=== PATIENT | female | born 2005 | race Caucasian/White ===

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

== ENCOUNTER 2024-04-19 10:31 | Emergency (ER) | payer OTHER, SELFPAY ==
[2024-04-19 11:05] VITALS: BP 122/82; PULSE 95; RESP 18; TEMP 36.6; O2SAT 98
--- NOTE | 2024-04-19 11:43 | ED.GENADULT ---
HPI - General Adult General Chief complaint: Urogenital-Female Stated complaint: uti symptoms Time Seen by Provider: 04/19/24 11:43 Source: patient Mode of arrival: ambulatory Limitations: no limitations History of Present Illness HPI narrative: 18-year-old female patient presents to the [facility] with complaints of urinary symptoms. Patient is accompanied by her mother. Patient does have history of MR. mother states that patient has been going to the bathroom often but is not able to pee every time. Patient is complaining of burning pain with urination. Denies fevers, body aches or chills. Symptoms have been going on for about 2 days. Denies any low back pain but states some abdominal tenderness at times. Related Data Home Medications Medication Instructions Recorded Confirmed L norgest/E estradiol-E estrad 0.1 0.1 tablet DAILY 09/30/23 04/19/24 mg-20 mcg (84)/10 mcg (7) tabs,3mos fluoxetine 10 mg capsule 10 mg DAILY 09/30/23 04/19/24 ondansetron 4 mg disintegrating 4 mg Q6-12H 09/30/23 04/19/24 tablet fluoxetine 20 mg capsule 20 mg HS 12/23/23 04/19/24 hyoscyamine sulfate 0.125 mg 0.125 mg TID 12/23/23 04/19/24 sublingual tablet Allergies Allergy/AdvReac Type Severity Reaction Status Date / Time No Known Allergies Allergy Verified 04/19/24 11:24 Review of Systems Review of Systems: CONSTITUTIONAL: Denies fever, chills, or sweats. EYES: Denies visual changes, redness, or discharge. ENT: Denies rhinorrhea, congestion, sore throat, or otalgia. CARDIOVASCULAR: Denies chest pain, palpitations, or edema. RESPIRATORY: Denies cough or dyspnea. GASTROINTESTINAL: Denies abdominal pain, nausea, vomiting, or diarrhea. GENITOURINARY: Positive dysuria , denies hematuria. SKIN: Denies rash or itching. MUSCULOSKELETAL: Denies back pain, joint pain, or myalgia. NEUROLOGIC: Denies headache, numbness, or weakness. PSYCHIATRIC: Denies anxiety or depression. [facility] Past Medical History Medical History Allergies Anxiety Cyclical vomiting Headache History of intellectual disability Intellectual disability Restless leg Social anxiety disorder Surgical History Surgical History H/O adenoidectomy History of tonsillectomy Family History Family History Mother No pertinent past medical history Father No pertinent past medical history Sibling Asthma Grandparent Asthma Cancer Diabetes mellitus Hypertension Social History Social History Smoking status: Never smoker Alcohol intake: never Substance use: never Lack of Transportation: No Lack of Food: Never True Current Housing: I Have Housing Concerned About Future Housing: No Difficulty Paying Gas/Electric Bills: No Difficulty Paying for Meds: No Currently Unemployed: No Education: High School Diploma/GED Difficulty w/ Childcare or Family Care: No Living arrangements: with family Occupation/Education: student Gender identity (if verbalized by the patient): Female Comments At the time of my signature I agree with nursing past medical history, surgical, social, and family history. There is no relevant family history pertinent to the presenting complaint. Exam Narrative: GENERAL: Well-appearing, well-nourished, and in no acute distress. HEAD: Normocephalic, atraumatic. EYES: PERRLA and EOMI. ENT: Nares clear, no rhinorrhea or epistaxis. Mucous membranes moist. NECK: Supple. No lymphadenopathy CHEST: Clear to auscultation. No respiratory distress. HEART: Regular rate and rhythm. No murmur heard. Normal peripheral pulses. ABDOMEN: Soft, nontender, nondistended, normal active bowel sounds. suprapubic tenderness on palpation. no CVA tenderness on percussion EXTREMITIES: Normal range of motion. No edema. SKIN: Warm, dry, no rash. NEURO: No focal deficits. Alert and oriented x3. Course Course Level of Care: Express Care Visit Vital Signs Vital signs: Vital Signs Temperature 36.6 C 04/19/24 11:05 Pulse Rate 95 04/19/24 11:05 Respiratory Rate 18 04/19/24 11:05 Blood Pressure 122/82 04/19/24 11:05 Pulse Oximetry 98 04/19/24 11:05 Oxygen Delivery Room Air 04/19/24 11:05 Temperature 36.6 C 11/24/24 11:05 Pulse Rate 95 04/19/24 11:05 Respiratory Rate 18 04/19/24 11:05 Blood Pressure 122/82 04/19/24 11:05 Pulse Oximetry 98 04/19/24 11:05 Oxygen Delivery Room Air 04/19/24 11:05 F vital signs reviewed Medical Decision Making MDM Narrative Medical decision making narrative: plan care patient is to discharge home with oral antibiotic and an antifungal since she is prone to yeast infections after taking antibiotics. Discussed with mother that if the antibiotic needs to be changed we will call and change at that time after received the culture if they do not hear from us continue the antibiotic until it is gone. Mother is aware the plan of care denies any other questions or concerns at this time. Differential Diagnosis Differential Diagnosis: Differential diagnosis: Uncomplicated lower UTI, uncomplicated UTI, pyelonephritis Vital Signs Vital Signs: Vital Signs Temperature 36.6 C 04/19/24 11:05 Pulse Rate 95 04/19/24 11:05 Respiratory Rate 18 04/19/24 11:05 Blood Pressure 122/82 04/19/24 11:05 Pulse Oximetry 98 04/19/24 11:05 Oxygen Delivery Room Air 04/19/24 11:05 Temperature 36.6 C 04/19/24 11:05 Pulse Rate 95 04/19/24 11:05 Respiratory Rate 18 04/19/24 11:05 Blood Pressure 122/82 04/19/24 11:05 Pulse Oximetry 98 04/19/24 11:05 Oxygen Delivery Room Air 04/19/24 11:05 Critical Care Time Critical Care Time Critical Care Time: No Discharge Plan Discharge Clinical Impression: Urinary tract infection Patient Disposition: Home, Self-Care Condition: Stable Instructions: Antibiotic Form, Urinary Tract Infection in Women (ED) Additional Instructions: We will send a urine culture off to the lab; if the culture identifies an organism that the prescribed antibiotic will not treat, you will receive a phone call from an urgent care staff member and an appropriate antibiotic will be prescribed. -Your symptoms should begin to improve within a day of starting antibiotics. But you should finish all the antibiotic pills you get. Otherwise your infection might come back. -Also recommend: drink more fluid. It might help flush out germs, and it does no harm -Tylenol/ibuprofen prn for pain or fever -Follow-up with your primary care provider for urine recheck or seek ER visit if condition worsens with high fever, nausea, vomiting and severe back pain. Prescriptions: New fluconazole 150 mg tablet 150 mg PO ONCE Qty: 1 0RF Rx Instructions: as a single dose nitrofurantoin monohyd/m-cryst [Macrobid] 100 mg capsule 100 mg PO Q12H 5 Days Qty: 10 0RF Rx Instructions: must administer with a meal/food No Action fluoxetine 10 mg capsule 10 mg DAILY ondansetron 4 mg tablet,disintegrating 4 mg Q6-12H L norgest/e.estradiol-e.estrad 0.1 mg-20 mcg (84)/10 mcg (7) tablets,dose pack,3 month 0.1 tablet DAILY hyoscyamine sulfate 0.125 mg tablet, sublingual 0.125 mg TID fluoxetine 20 mg capsule 20 mg HS Follow-up/Referrals: UNKNOWN,DOCTOR [Primary Care Provider] - Time of Disposition: 11:51
[2024-04-19 11:56] LABS: BEDSIDEPREGUCG Negative (Negative)
[2024-04-19 11:56] LABS: EDUAAPPEAR Cloudy; EDUABILI Negative (Negative); EDUABLOOD Negative (Negative); EDUACOLOR1 Yellow; EDUAGLUCOSE Negative (Negative); EDUAKETONE Negative (Negative); EDUALEUKO 1+ (Negative); EDUANITRATE Negative (Negative); EDUAPROTEIN Trace (Negative); EDUASPGRAVITY 1.025; EDUAUROBILI 0.2
== END 2024-04-19 11:57 | disposition home or self-care (01) ==
PROVIDERS: Emergency Provider Nurse Practitioner Family
DX: N39.0 Urinary tract infection, site not specified (principal); F79 Unspecified intellectual disabilities; F41.9 Anxiety disorder, unspecified
CPT/HCPCS: 81003; 81025; 87086; 99213; G0463

== ENCOUNTER 2024-05-18 10:42 | Emergency (ER) | payer OTHER, SELFPAY ==
[2024-05-18 10:53] VITALS: BP 122/88; PULSE 89; RESP 16; TEMP 36.4; O2SAT 99
--- NOTE | 2024-05-18 11:08 | ED.FEMALEGU ---
HPI - Female Genitourinary General Chief complaint: Urogenital-Female Stated complaint: possible UTI Time Seen by Provider: 05/18/24 11:09 Source: patient and RN notes reviewed Mode of arrival: ambulatory Limitations: no limitations Related Data Home Medications ?Medication ?Instructions ?Recorded ?Confirmed ?Last Taken ?Type L norgest/E estradiol-E estrad 0.1 0.1 tablet DAILY 09/30/23 04/19/24 Unknown History mg-20 mcg (84)/10 mcg (7) tabs,3mos fluoxetine 10 mg capsule 10 mg DAILY 09/30/23 04/19/24 Unknown History ondansetron 4 mg disintegrating 4 mg Q6-12H 09/30/23 04/19/24 Unknown History tablet fluoxetine 20 mg capsule 20 mg HS 12/23/23 04/19/24 Unknown History hyoscyamine sulfate 0.125 mg 0.125 mg TID 12/23/23 04/19/24 Unknown History sublingual tablet Allergies Allergy/AdvReac Type Severity Reaction Status Date / Time No Known Allergies Allergy Verified 05/18/24 10:49 Review of Systems Review of Systems: CONSTITUTIONAL: Denies body aches, fever, chills, or sweats. CARDIOVASCULAR: Denies chest pain, palpitations, or edema. RESPIRATORY: Denies cough or dyspnea. GASTROINTESTINAL: Denies abdominal pain, nausea, vomiting, or diarrhea. GENITOURINARY: Reports dysuria, frequency, urgency, hematuria, flank pain SKIN: Denies rash, itching, or wounds. MUSCULOSKELETAL: Denies back pain or myalgia. [facility] Past Medical History Medical History Allergies Anxiety Cyclical vomiting Headache History of intellectual disability Intellectual disability Restless leg Social anxiety disorder Surgical History Surgical History H/O adenoidectomy History of tonsillectomy Family History Family History Mother No pertinent past medical history Father No pertinent past medical history Sibling Asthma Grandparent Asthma Cancer Diabetes mellitus Hypertension Social History Social History Smoking status: Never smoker Alcohol intake: never Substance use: never Lack of Transportation: No Lack of Food: Never True Current Housing: I Have Housing Concerned About Future Housing: No Difficulty Paying Gas/Electric Bills: No Difficulty Paying for Meds: No Currently Unemployed: No Education: High School Diploma/GED Difficulty w/ Childcare or Family Care: No Living arrangements: with family Occupation/Education: student Gender identity (if verbalized by the patient): Female Comments At time of signature, I have reviewed and agree with nursing past medical, surgical, social and family history unless otherwise noted. Please see nursing chart for further information. There is no relevant family history pertinent to the presenting complaint Exam Narrative: GENERAL: Well-appearing and in no acute distress. HEAD: Normocephalic EYES: EOMI. . ENT: Mucous membranes pink and moist. NECK: Normal AROM. Supple. CHEST: No respiratory distress. Clear to auscultation. HEART: Regular rate and rhythm. ABDOMEN: Soft, nontender, nondistended, normal active bowel sounds. No CVA tenderness MUSCULOSKELETAL: No bony tenderness. SKIN: Warm, dry, no rash. NEURO: No focal deficits. Alert and oriented x3. Gait steady. PSYCH: Normal affect. No signs of depression or anxiety. Course Course Emergency Course: Patient is aware of diagnosis, understands and agrees to treatment plan. Anticipatory guidance given. Patient agrees to follow-up as directed and is aware of reasons to seek care at the emergency department. Portions of this record may have been created with voice recognition software Level of Care: Express Care Visit Vital Signs Vital signs: Vital Signs Temperature 97.6 F 05/18/24 10:53 Pulse Rate 89 05/18/24 10:53 Respiratory Rate 16 05/18/24 10:53 Blood Pressure 122/88 05/18/24 10:53 Pulse Oximetry 99 05/18/24 10:53 Oxygen Delivery Room Air 05/18/24 10:53 Temperature 97.6 F 05/18/24 10:53 Pulse Rate 89 05/18/24 10:53 Respiratory Rate 16 05/18/24 10:53 Blood Pressure 122/88 05/18/24 10:53 Pulse Oximetry 99 05/18/24 10:53 Oxygen Delivery Room Air 05/18/24 10:53 Reviewed MDM - Female Genitourinary MDM Narrative Medical decision making narrative: Discussed physical exam findings and urine. Advised supportive measures and signs/symptoms to go to the ER. Pt is appropriate for outpt treatment and f/u. Differential Diagnosis Differential diagnosis: Likely urinary tract infection and cystitis Discharge Plan Discharge Clinical Impression: Dysuria Patient Disposition: Home, Self-Care Condition: Stable Instructions: Antibiotic Form, Urinary Tract Infection in Women (ED) Additional Instructions: Take the antibiotic as prescribed The urine will be sent of for a culture to identify what type of bacteria is causing your infection. If the culture shows that the antibiotic will not get rid of your infection, you will be notified and a new antibiotic will be called in for you. Increase water intake you will need to follow up with your PCP, call to schedule an appointment. Go to the ER for any worsening symptoms or concerns Patient Language: Cambodian Prescriptions: New fluconazole 150 mg tablet 150 mg PO DAILY Qty: 2 0RF nitrofurantoin monohyd/m-cryst [Macrobid] 100 mg capsule 100 mg PO Q12H 5 Days Qty: 10 0RF Rx Instructions: must administer with a meal/food No Action fluoxetine 10 mg capsule 10 mg DAILY ondansetron 4 mg tablet,disintegrating 4 mg Q6-12H L norgest/e.estradiol-e.estrad 0.1 mg-20 mcg (84)/10 mcg (7) tablets,dose pack,3 month 0.1 tablet DAILY hyoscyamine sulfate 0.125 mg tablet, sublingual 0.125 mg TID fluoxetine 20 mg capsule 20 mg HS fluconazole 150 mg tablet 150 mg PO ONCE Qty: 1 0RF Rx Instructions: as a single dose nitrofurantoin monohyd/m-cryst [Macrobid] 100 mg capsule 100 mg PO Q12H 5 Days Qty: 10 0RF Rx Instructions: must administer with a meal/food Follow-up/Referrals: Maria Victoria Clayton,Nkechi [Other] Time of Disposition: 11:14
[2024-05-18 11:12] LABS: EDUAAPPEAR Cloudy; EDUABILI Negative (Negative); EDUABLOOD Negative (Negative); EDUACOLOR1 Yellow; EDUAGLUCOSE Negative (Negative); EDUAKETONE Negative (Negative); EDUALEUKO 1+ (Negative); EDUANITRATE Negative (Negative); EDUAPH 8.5; EDUAPROTEIN 1+ (Negative); EDUAUROBILI 0.2
== END 2024-05-18 11:16 | disposition home or self-care (01) ==
PROVIDERS: Emergency Provider Nurse Practitioner Family
DX: R30.0 Dysuria (principal); R35.0 Frequency of micturition; R39.15 Urgency of urination; R31.9 Hematuria, unspecified
CPT/HCPCS: 81003; 87086; 99213; G0463

== ENCOUNTER 2024-10-31 08:08 | Emergency (ER) | payer OTHER, SELFPAY ==
--- NOTE | ~2024-10-31 | XR_ITS ---
EXAMINATION: XR wrist RT min 3V DATE: 10/31/2024 08:35 INDICATION: Right wrist injury post fall TECHNIQUE: Posteroanterior, ulnar deviation, oblique, and lateral views of the right wrist were obtai estiven. COMPARISON: none FINDINGS: Alignment is normal. No fracture. Joint spaces are normal. Soft tissues are unremarkable. IMPRESSION: 1. Negative right wrist radiographs. Reviewed, dictated and finalized at location A.
--- OUTSIDE RECORDS SUMMARY | 2024-10-31 08:11 | XMS_ITS | Clinical Summary ---
Author Organization [facility] [employer] Address [address] [place] [address] Care Team Providers Care Tube Cleaner Name Role Phone Nkechi Calhoun MD Primary Care Provider Source Comments [facility] [employer],non-owned Affiliates and Associated Physician Practices is amultiple site organization consisting of ambulatory clinics and hospital sitesin [place], [place], [place] and [place]. This disclosure is being madepursuant to the Care Everywhere program and may not contain all information available regarding this patient. Last updated 18.[facility] [employer] Allergies No known active allergies Medications * This document contains information received from the source organization and may not represent a complete record from that organization. * Be aware that medications may not be up to date on this document. Alwaysverify current medications with the patient. multivitamin daily tablet Take 1 (one) tablet by mouth daily with food Active coenzyme Q10 100 MG capsule Take 100 (one hundred) mg by mouth once daily 3 Active ondansetron, disintegrating , (Zofran ODT) 4 MG tabletIndicati ons:Nausea and Vomiting Take 1 (one) tablet by mouth every 6 hours as needed for Nausea/Vomiting Allow tablet to dissolve on the tongue Reasons: Nausea and Vomiting 28 tablet 3 Active hyoscyamine (Levsin SL) 0.125 MG sublingual tablet Dissolve 1 (one) tablet under the tongue 3 times daily as needed for Spasms 90 tablet 11 4 Active FLUoxetine (PROzac) 10 MG capsule Take 1 (one) capsule by mouth once daily 90 capsule 3 4 Active FLUoxetine (PROzac) 20 MG capsule Take 1 (one) capsule by mouth once daily 90 capsule 3 4 Active oxyBUTYnin CR 24hr (Ditropan-XL) 5 MG tablet Take 1 (one) tablet by mouth once daily 90 tablet 4 5 Active Additional Information Patient not taking.Reported on 10/20/2024 Levonorgest-Et hinyl Estradiol (LoSeasonique) 0.1-0.02 & 0.01 MG TABS tablet Take 1 tablet by mouth once daily Patient to skip placebo pills and take active pills continuously to suppress menstruation 91 tablet 7 5 Active Levonorgest-Et hinyl Estradiol (LoSeasonique) 0.1-0.02 & 0.01 MG TABS tablet Take 1 tablet by mouth once daily Patient to skip placebo pills and take active pills continuously to suppress menstruation 91 tablet 7 4 025 Discontin ued(Reord er) Active Problems Patient Care Coordination No te Formatting of this note migh t be different from the original. Do you have any cultural preferences or concerns? No 09/03/22 Problem Noted Date Diagnosed Date Gastroesophageal reflux disease 10/01/2023 Periumbilical abdominal pain 02/12/2023 Nausea and vomiting 02/12/2023 Weight loss 02/12/2023 Intermittent torticollis 10/09/2022 Regular astigmatism of both eyes 10/09/2022 Cyclic vomiting syndrome 06/17/2022 Assessment & Plan (06/19/2022 5:00 PM STOCK HANDLER): Assessment: Kaelyn Shepherd is an 17 year old female with a PMHx of developmental delay and cyclic vomiting syndrome presenting with uncontrollable emesis for the past week in the setting of of Strep infection (cefdinir s/p treatement). Labs consistent with mild dehydration and UA w/ 3+ blood. Most likely etiology of her symptoms is cyclic vomiting spell. Symptoms are typical of her spells, though this episode is lasting longer. Vomiting and headache are suspicious of increased ICP or other intracranial process, though less likely given the associated abd symptoms and hx of similar symptoms w/ cyclic vomiting spells. Improvement in symptoms over the past 24 hours on sumatriptan, Benadryl/hydroxyzine, ondansetron, esomeprazole. Appreciate GI recommendation for amitriptyline-will start at discharge. Discussed with parent whether she would prefer to have sumatriptan or hyoscyamine available for p.r.n. use and family elected sumatriptan based on her response while inpatient. Recommend follow-up with GI for outpatient management. Taking good p.o. and stable for discharge today. Assessment & Plan (06/17/2022 8:01 PM STOCK HANDLER): Assessment: Kaelyn Shepherd is an 17 year old female with a PMHx of developmental delay and cyclic vomiting syndrome presenting with uncontrollable emesis for the past week in the setting of of Strep infection (cefdinir s/p treatement). Labs consistent with mild dehydration and UA w/ 3+ blood. Most likely etiology of her symptoms is cyclic vomiting spell. Symptoms are typical of her spells, though this episode is lasting longer. Vomiting and headache are suspicious of increased ICP or other intracranial process, though less likely given the associated abd symptoms and hx of similar symptoms w/ cyclic vomiting spells. She requires admission for IVF and pain management. Plan: - Admit to General Medicine; [facility] Team; Dr. Vazquez - q8h vitals - spot check pulse ox - strict I/Os - mIVF D5 NS @100ml/hr - scheduled Nexium 40mg qd - PRN tylenol - PRN zofran 8mg q8h - PRN toradol - Continue home OCPs - family to bring - Plan to discuss with GI in the AM. Abdominal pain, generalized 07/19/2020 Assessment & Plan (06/19/2022 4:57 PM STOCK HANDLER): Assessment: Kaelyn Shepherd is an 17 year old F with PMH of developmental delay and cyclic vomiting syndrome here with abd pain and uncontrolled emesis. UA w/ 3+ blood and oxalate crystals (currently spotting). CT w/o contrast was not concerning for stones. Generalized abd tenderness no rebound tenderness though very nauseous. Admitted for IVF and pain management. Assessment & Plan (06/17/2022 8:01 PM STOCK HANDLER): Assessment: Kaelyn Shepherd is an 17 year old F with PMH of developmental delay and cyclic vomiting syndrome here with abd pain and uncontrolled emesis. UA w/ 3+ blood and oxalate crystals (currently spotting). CT w/o contrast was not concerning for stones. Generalized abd tenderness no rebound tenderness though very nauseous. Admitted for IVF and pain management. Plan: - PRN tylenol - PRN Toradol - follow up official CT read Cyclic vomiting syndrome 02/04/2020 Assessment & Plan (02/05/2020 5:35 AM CDT): Assessment: Kaelyn is a 14 year old with history of developmental delay, speech apraxia, social phobia, and ADHD who presents with 5 weeks of persistent vomiting. Work up to this point has been negative including UTI, constipation, abdominal migraines, . At this point, concern for obstruction or other intra- abdominal process is certainly present. Given only one fever yesterday with new onset sore throat associated, but no change in vomiting, and no diarrhea, the vomiting is likely not of infectious etiology. Given normal blood glucose level today in the ER, vomiting not likely secondary to DKA or diabetes. Abdominal ultrasound today will rule out obstruction or other anatomical abnormality, but surgical cause of vomiting unlikely given stable clinical status in ER and chronicity. Given known social phobia and developmental delay, functional abdominal pain and associated vomiting is high on differential. New anxiety or stressors due to new school year and COVID19 pandemic are potential triggers for this new vomiting. Given Kaelyn's inability to tolerate food, she requires admission for IV fluid resuscitation and further work up for etiology of vomiting. Plan: - Admit to [facility] team, Dr. Blandon - Follow up abdominal ultrasound read - monitor I/Os - Zofran q4 hrs prn - Consult GI, appreciate recs - Consider psychological consultation pending abdominal ultrasound and GI recommendations - If retching worsens, consider nexium as this seemed to help in ER. Will hold off on ordering for now - IV fluids 5D NS at 120 ml/hour (maintenance) - child life consultation to help cope with admission given social phobia Mood swings 10/11/2014 Global developmental delay 10/11/2014 Suppression of menses 06/28/2014 Dysmenorrhea 06/28/2014 Chronic tonsillitis and adenoiditis 09/26/2012 Overview (04/03/2015): Snoring 03/10/2012 Insomnia 02/07/2012 Vulvar irritation Speech apraxia Resolved Problems Problem Noted Date Diagnosed Date Resolved Date Dehydration 08/16/2022 08/30/2022 Assessment & Plan (08/16/2022 10:56 PM CDT): Assessment: Kaelyn is a 17 year old female with a PMHx of developmental delay, functional dyspepsia and cyclic vomiting syndrome presenting with uncontrollable emesis, abdominal pain and now dehydration. Labs consistent with mild dehydration and leukocytosis with left shift suggestive of infection. Most likely etiology of her symptoms is gastritis vs cyclic vomiting spell. Symptoms are typical of her spells, though this episode is lasting longer. Vomiting and headache can raise the suspicion for intracranial process, though this is much less likely given the associated abdominal symptoms, ihstory of similar symptoms in the past as well as normal neurological exam. Normal preliminary CT abdomen decreases suspicion for surgical pathology such as appendicitis. She requires admission for IVF and symptom management. Plan: - Admit to General Medicine - q8h vitals - strict I/Os - mIVF D5 NS @100ml/hr - scheduled IV Nexium 40mg qd - PRN tylenol for pain - PRN Reglan Q6h - Continue home OCPs - family to bring - Consider discussed symptom management with GI again in AM if unable to control - Child Life consult Encounters Date Type Department Care Team Description 10/21/2024 Results Follow-Up [facility] [address] [place] [address] Shweta Mcgee MD 10/20/2024 1:00 PM CDT Office Visit [facility] [address] [place] [address] Shweta Mcgee MD Surveillance of contraceptive pill (Primary Dx); Weight gain; Encounter for vitamin deficiency screening; Global developmental delay; Dysmenorrhea 10/20/2024 Travel from Last 3 Months Immunizations Immunization Administration Dates Next Due DTAP/HEP B/IPV 2004,2004,2004 DTAP/IPV 01/05/2010 DTaP VACCINE IM (6wk-6yrs) 11/26/2005 FLU VACCINE QUAD IIV4 SPLIT 0.25 ML IM 3 HEP A PED/ADULT VACCINE 05/13/2006 HEP A PEDS 2 DOSE 05/21/2007 HEP B VACCINE, PED/ADOL 2004 HIB VACCINE 11/26/2005, 5,2004,07/17 Human Papilloma Virus Nineva lent Vaccine 07/14/2018,2016 INFLUENZA VACCINE, QUADR. (F LUZONE; FLULAVAL; FLUARIX; AFLURIA QUADRIVALENT; 6MO+), 0.5 ML (IIV4) 02/05/2020 MENINGOCOCCAL ACWY MENVEO 09/06/2020,2016 MMR VACCINE 01/05/2010,08/22/2005 Meningococcal B Recombinant 2 Dose, IM 1,09/06/2020 PNEUMOCOCCAL PCV7 CONJ, PEDS 08/22/2005, 2004,2004,07/17 TDAP, HISTORIC VACCINE 2016 VARICELLA 01/05/2010,05/23/2005 Family History Medical History Relation Name Comments Other Brother GERD Migraine Maternal Grandfather Cancer - Other Maternal Grandmother cervi irvin Migraine Mother Cancer - Pancreatic Paternal Grandmother Seizures Paternal Uncle Anesthesia Reaction Neg Hx Relation Name Status Comments Brother Maternal Grandfather Maternal Grandmother Mother Paternal Grandmother Paternal Uncle Social History Tobacco Use Types Packs/Day Years Used Date Smoking Tobacco: Never Passive Smoke Exposure: Never Smokeless Tobacco: Never Tobacco Cessation:Counseling Given: No Alcohol Use Standard Drinks/Week Comments No 0 (1 standard drink = 0.6 oz pur e alcohol) AUDIT-C Answer Date Recorded Q1: How often do you have a drink containing alcohol? Never 08/17/2022 Q2: How many drinks containi ng alcohol do you have on a typical day when you are drinking? Patient does not drink 3 Q3: How often do you have si x or more drinks on one occasion? Never 08/17/2022 Overall Financial Resource Strain (CARDIA) Answe r Date Recorded How hard is it for you to pa y for the very basics like food, housing, medical care, and heating? Patient declined 08/17/2022 PHQ-2 Answer Date Recorded Patient Health Questionnaire-2 Score 0 10/20/2024 [facility] [place] [facility] Occupat ional Health - Occupational Stress Questionnaire Answer Date Recorded Do you feel stress - tense, restless, nervous, or anxious, or unable to sleep at night because your mind is troubled all the time - these days? Only a little 08/17/2022 Hunger Vital Sign Answer Date Recorded Within the past 12 months, y ou worried that your food would run out before you got the money to buy more. Patient declined Within the past 12 months, t he food you bought just didn't last and you didn't have money to get more. Patient declined PRAPARE - Transportation Answer Date Re corded In the past 12 months, has l ack of transportation kept you from medical appointments or from getting medications? No 07/26 In the past 12 months, has l ack of transportation kept you from meetings, work, or from getting things needed for daily living? No 08/17/2022 Housing Stability Vital Sign Answer Larry e Recorded In the last 12 months, was t here a time when you were not able to pay the mortgage or rent on time? Patient refused 08/18/19 23 In the last 12 months, how many places have you lived? 1 08/17/2022 In the last 12 months, was t here a time when you did not have a steady place to sleep or slept in a skilled nursing (including now)? No 08/17/2022 Comments No Sex and Gender Information Value Date Recorded Sex Assigned at Female 06/01/2024 11:53 PM STOCK HANDLER Legal Sex Female 8:37 AM STOCK HANDLER Gender Identity Female 06/01/2024 11:53 PM STOCK HANDLER Sexual Orientation Not on file Last Filed Vital Signs Vital Sign Reading Time Taken Comments Blood Pressure 120/88 10/20/2024 1:04 PM CDT Pulse 97 06/29/2024 2:11 PM STOCK HANDLER Temperature 37.1 C (98.7 F) 06/29/2024 2:11 PM STOCK HANDLER Respiratory Rate 17 06/29/2024 2:11 PM STOCK HANDLER Oxygen Saturation 94% 06/29/2024 2:11 PM STOCK HANDLER Inhaled Oxygen Concentration - - Weight 84.7 kg (186 lb 12.8 oz) 10/20/2024 1:04 PM CDT Height 157.5 cm (5' 2) 10/20/2024 1:04 PM CDT Body Mass Index 34.17 10/20/2024 1:04 PM CDT Plan of Treatment Health Maintenance Due Date Last Done Comments HIV SCREENING 2019 CHLAMYDIA/GONORRHEA SCREENING 2020 HEPATITIS C SCREENING 05/06/2022 COVID-19 VACCINE (2023-2 5 season) 2024 INFLUENZA VACCINE (Season Ended) 2025 04/26/20, 02/05/2020 DTAP/TDAP/TD VACCINES (7 - T d or Tdap) 2026 2016, 01/05/2010, 11/26/2005, Additional history exists ZOSTER VACCINE (1 of 2) 2054 HEPATITIS B VACCINE Completed 2004, 2004, 2004, Additional history exists PNEUMOCOCCAL VACCINE Completed 08/22/2005, 2004, 2004, Additional history exists HIB VACCINE Completed 11/26/2005, 10/26, 2004, Additional history exists HPV VACCINE Completed 07/14/2018, 2016 MENINGOCOCCAL GROUPS A/C/Y/W VACCINE Completed 09/06/2020, 2016 MENINGOCOCCAL (Group B) VACC INE SHARED DECISION-MAKING Completed 10/26/2020, 09/06/2020 DEPRESSION SCREENING Completed 06/02/2024, 07/11/19 24 Procedures Procedure Name Priority Date/Time Associated Diagnosis Comments VITAMIN D 25-HYDROXY Routine 10/20/2024 1:28 PM CDT Encounter for vitamin deficiency screening TSH REFLEX FREE T4 Routine 10/20/2024 1: 28 PM CDT Weight gain from Last 3 Months Results * TSH REFLEX FREE T4 (10/20/2024 1:28 PM CDT) TSH with Reflex FT4 1.54 mIU/L [facility] Comment: Reference Range > or = 20 Years 0.40-4.50 Ranges First trimester 0.26-2.66 Second trimester 0.55-2.73 Third trimester 0.43-2.91 Test Performed at: [email or web address] [id number] [facility] [place] [address] KARIN HEREDIA MD Blood BLOOD SPECIMEN / Unknown 10/20/2024 1:28 PM CDT 10/20/2024 1:29 PM CDT Shweta Mcgee MD LAB - CHEMISTRY ORDERABLES Ghada l Result Performing Organization Address [facility] Co de Phone Number [phone] [address] [place] [phone] * VITAMIN D 25-HYDROXY (10/20/2024 1:28 PM CDT) Vitamin D, 25 Hydroxy 50 30 - 100 ng/mL [facility] Comment: Vitamin D Status 25-OH Vitamin D: Deficiency: <20 ng/mL Insufficiency: 20 - 29 ng/mL Optimal: > or = 30 ng/mL For 25-OH Vitamin D testing on patients on D2-supplementation and patients for whom quantitation of D2 and D3 fractions is required, the QuestAssureD(TM) 25-OH VIT D, (D2,D3), LC/MS/MS is recommended: order code [id number] (patients >2yrs). See Note 1 Note 1 For additional information, please refer to http://[email or web address]/faq/EBC448 (This link is being provided for informational/ educational purposes only.) Test Performed at: [facility] [place] [address] KARIN HEREDIA MD Blood BLOOD SPECIMEN / Unknown 10/20/2024 1:28 PM CDT 10/20/2024 1:29 PM CDT Shweta Mcgee MD LAB - CHEMISTRY ORDERABLES Ghada l Result Performing Organization Address [facility] Co de Phone Number [phone] [place] [address] from Last 3 Months Insurance [employer] Advance Directives * Full Code (Latest Code Status on File) Date Activated Date Inactivated Comments 08/17/2022 3:09 AM 08/17/2022 7:12 PM * Full Code Date Activated Date Inactivated Comments 02/04/2020 5:05 PM 02/05/2020 9:12 PM Care Teams Tube Cleaner Relationship Specialty Start Date End Date Nkechi Calhoun MD [address] [place] [address] PCP - General Internal Medicine 09/25/23
--- OUTSIDE RECORDS SUMMARY | 2024-10-31 08:11 | XMS_ITS | Encounter Summary ---
Author Organization [facility] Health Address [address] [place] [address] Care Team Providers Care Charger Tester Name Role Phone Nkechi Calhoun MD Primary Care Provider Encounter Details Date Type Department Care Team (Late st Contact Info) Description 10/21/2024 Results Follow-Up [facility] - TABLEAU ANALYST [address] [place] [address] Shweta Mcgee MD [address] [facility] [address] [place] [address] Social History Tobacco Use Types Packs/Day Years Used Date Smoking Tobacco: Never Passive Smoke Exposure: Never Smokeless Tobacco: Never Alcohol Use Standard Drinks/Week Comments No 0 (1 standard drink = 0.6 oz pur e alcohol) AUDIT-C Answer Date Recorded Q1: How often do you have a drink containing alcohol? Never 08/17/2022 Q2: How many drinks containi ng alcohol do you have on a typical day when you are drinking? Patient does not drink Q3: How often do you have si x or more drinks on one occasion? Never 08/17/2022 Overall Financial Resource Strain (CARDIA) Answe r Date Recorded How hard is it for you to pa y for the very basics like food, housing, medical care, and heating? Patient declined 08/17/2022 PHQ-2 Answer Date Recorded Patient Health Questionnaire-2 Score 0 10/20/2024 [facility] of Occupat ional Health - Occupational Stress [...] place to sleep or slept in a retirement (including now)? No 08/17/2022 Comments No Sex and Gender Information Value Date Recorded Sex Assigned at Female 06/01/2024 11:53 PM [employer] Legal Sex Female 8:37 AM ELECTRICIAN WIRING Gender Identity Female 06/01/2024 11:53 PM ELECTRICIAN WIRING Sexual Orientation Not on file documented as of this encounter Functional Status * Is person deaf or have serious hearing difficulty? Answer Date of Assessment Author No 08/17/2022 3:16 AM Keysha Trevizo RN * Is person blind or have serious difficulty seeing? Answer Date of Assessment Author No 08/17/2022 3:16 AM Keysha Trevizo RN * Does person have serious difficulty walking/climbing stairs? Answer Date of Assessment Author No 08/17/2022 3:16 AM Keysha Trevizo RN * Does person have difficulty dressing/bathing? Answer Date of Assessment Author Yes 08/17/2022 3:16 AM Keysha Trevizo RN * Does person have difficulty doing errands alone? Answer Date of Assessment Author Yes 08/17/2022 3:16 AM Keysha Trevizo RN documented as of this encounter Mental Status * Does person have difficulty concentrating/remembering/making decisions? Answer Entry Date Author Yes 08/17/2022 3:16 AM Keysha Trevizo RN documented in this encounter Plan of Treatment Not on file documented as of this encounter Visit Diagnoses Not on filedocumented in this encounter Care Teams Charger Tester Relationship Specialty Start Date End Date Nkechi Calhoun MD [address] [place] [id number] PCP - General Internal Medicine 09/25/23 documented as of this encounter
--- NOTE | 2024-10-31 08:13 | ED_ITS ---
HPI - General Adult General Chief complaint: Extremity Injury, Upper Stated complaint: RT Wrist Pain Time Seen by Provider: 10/31/24 08:12 Source: patient Mode of arrival: ambulatory Limitations: no limitations History of Present Illness HPI narrative: 19-year-old female patient presents to the [facility] accompanied by her mother with complaints of right wrist pain. Patient states that she was sitting on her bed trying to get up and tripped over her boot and fell back using her arms that were extended to catcher and has been complaining of right wrist pain since last night. It is denies any numbness or tingling to the fingertips. Mother states she did take a dose of ibuprofen last night about 3:00 a.m. Related Data Home Medications ?Medication ?Instructions ?Recorded ?Confirmed ?Last Taken ?Type L norgest/E estradiol-E estrad 0.1 0.1 tablet DAILY 09/30/23 04/19/24 Unknown History mg-20 mcg (84)/10 mcg (7) tabs,3mos fluoxetine 10 mg capsule 10 mg DAILY 09/30/23 04/19/24 Unknown History ondansetron 4 mg disintegrating 4 mg Q6-12H 09/30/23 04/19/24 Unknown History tablet fluoxetine 20 mg capsule 20 mg HS 12/23/23 04/19/24 Unknown History hyoscyamine sulfate 0.125 mg 0.125 mg TID 12/23/23 04/19/24 Unknown History sublingual tablet Allergies Allergy/AdvReac Type Severity Reaction Status Date / Time No Known Allergies Allergy Verified 10/31/24 08:17 Review of Systems Review of Systems: CONSTITUTIONAL: Denies fever, chills, or sweats. EYES: Denies visual changes, redness, or discharge. ENT: Denies rhinorrhea, congestion, sore throat, or otalgia. CARDIOVASCULAR: Denies chest pain, palpitations, or edema. RESPIRATORY: Denies cough or dyspnea. GASTROINTESTINAL: Denies abdominal pain, nausea, vomiting, or diarrhea. GENITOURINARY: Denies dysuria or hematuria. SKIN: Denies rash or itching. MUSCULOSKELETAL: Denies back pain, joint pain, or myalgia. positive right wrist pain NEUROLOGIC: Denies headache, numbness, or weakness. PSYCHIATRIC: Denies anxiety or depression. [facility]LY [facility], [facility] Past Medical History Medical History Cyclical vomiting Restless leg Intellectual disability Headache Anxiety Allergies History of intellectual disability Social anxiety disorder Surgical History Surgical History H/O adenoidectomy History of tonsillectomy Family History Family History Mother No pertinent past medical history Father No pertinent past medical history Sibling Asthma Grandparent Asthma Cancer Diabetes mellitus Hypertension Social History Social History Smoking status: Never smoker Alcohol intake: never Substance use: never Lack of Transportation: No Lack of Food: Never True Current Housing: I Have Housing Concerned About Future Housing: No Difficulty Paying Gas/Electric Bills: No Difficulty Paying for Meds: No Currently Unemployed: No Education: High School Diploma/GED Difficulty w/ Childcare or Family Care: No Living arrangements: with family Occupation/Education: student Gender identity (if verbalized by the patient): Female Comments At the time of my signature I agree with nursing past medical history, surgical, social, and family history. There is no relevant family history pertinent to the presenting complaint. Exam Narrative: GENERAL: Well-appearing, well-nourished, and in no acute distress. HEAD: Normocephalic, atraumatic. EYES: PERRLA and EOMI. ENT: Nares clear, no rhinorrhea or epistaxis. Mucous membranes moist. NECK: Supple. No lymphadenopathy CHEST: Clear to auscultation. No respiratory distress. HEART: Regular rate and rhythm. No murmur heard. Normal peripheral pulses. ABDOMEN: Soft, nontender, nondistended, normal active bowel sounds. EXTREMITIES: the R wrist is without obvious asymmetry or deformity when compared to the L wrist. No surface trauma, open wounds, swelling, or obvious deformity. No overlying erythema or warmth. No bony crepitus. focal area of TTP to the ulnar side of the right wrist. No scaphoid fullness or tenderness to direct palpation or axial load. pain with flex/extension, normal ulnar/radial deviation. Motor/sensory function of ulnar, radial, median nerves intact. Ulnar and radial pulses intact. Negaitve Phalen's/Tinel's sign. Negative Jonathan test. electrical engineering intern is 5/5 bilaterally SKIN: Warm, dry, no rash. NEURO: No focal deficits. Alert and oriented x3. Course Course Level of Care: Express Care Visit Vital Signs Vital signs: Vital Signs Temperature 36.3 C L 10/31/24 08:17 Pulse Rate 82 10/31/24 08:17 Respiratory Rate 18 10/31/24 08:17 Blood Pressure 119/88 10/31/24 08:17 Pulse Oximetry 99 10/31/24 08:17 Oxygen Delivery Room Air 10/31/24 08:17 Temperature 36.3 C L 10/31/24 08:17 Pulse Rate 82 10/31/24 08:17 Respiratory Rate 18 10/31/24 08:17 Blood Pressure 119/88 10/31/24 08:17 Pulse Oximetry 99 10/31/24 08:17 Oxygen Delivery Room Air 10/31/24 08:17 Vital signs reviewed. Medical Decision Making MDM Narrative Medical decision making narrative: plan of care for patients to x-ray the right wrist to assess for any acute fractures. I will reassess patient once this has resulted. Differential Diagnosis Differential Diagnosis: Differential diagnosis: paronychia, felon, cellulitis, flexor tenosynovitis, mallet finger, boutonniere deformity, flexor tendons, dislocated digits, unstable fracture, unstable ligamentous injury, closed space infection, carpal tunnel syndrome, contusion. Vital Signs Vital Signs: Vital Signs Temperature 36.3 C L 10/31/24 08:17 Pulse Rate 82 10/31/24 08:17 Respiratory Rate 18 10/31/24 08:17 Blood Pressure 119/88 10/31/24 08:17 Pulse Oximetry 99 10/31/24 08:17 Oxygen Delivery Room Air 10/31/24 08:17 Temperature 36.3 C L 10/31/24 08:17 Pulse Rate 82 10/31/24 08:17 Respiratory Rate 18 10/31/24 08:17 Blood Pressure 119/88 10/31/24 08:17 Pulse Oximetry 99 10/31/24 08:17 Oxygen Delivery Room Air 10/31/24 08:17 Imaging Data Radiologist's impression: Express Care [address] [address] XRay Report Signed Patient: Kaelyn Shepherd: 2005 MR#: [id number] Age: 19 Acct:[id number] Loc: [facility] ADM Date: 10/31/24Attending Dr: Ordering Physician: Franci Long APRN Date of Service: 10/31/24 Procedure(s): XR wrist RT min 3V Accession Number(s): [id number] cc: PATROLLER PHYSICIAN; Franci Long APRN~ EXAMINATION: XR wrist RT min 3V DATE: 10/31/2024 08:35 INDICATION: Right wrist injury post fall TECHNIQUE: Posteroanterior, ulnar deviation, oblique, and lateral views of the right wrist were obtained. COMPARISON: none FINDINGS: Alignment is normal. No fracture. Joint spaces are normal. Soft tissues are unremarkable. IMPRESSION: 1. Negative right wrist radiographs. Reviewed, dictated and finalized at location A. Critical Care Time Critical Care Time Critical Care Time: No Discharge Plan Discharge Clinical Impression: Right wrist sprain Qualifiers: Encounter type: initial encounter Wrist sprain location: ulnar collateral ligament Qualified Code(s): S63.591A - Other specified sprain of right wrist, initial encounter Patient Disposition: Home Condition: Stable Instructions: Antibiotic Form, Wrist Sprain (ED) Additional Instructions: Avoid weight bearing until the pain subsides. Ice to the area 20-30 minutes 4-6 times a day Elevate above heart Elastic wrap or orthopedic splint as directed for comfort for the next 5-7 days Tylenol for lesser pain Ibuprofen regularly for the next 2-3 days for the inflammation Follow up with your primary care provider if the condition is not improving within 1 week or sooner if the Condition worsens with numbness, tingling, decrease sensation with weakness to seek ER. Patient Language: Welsh Prescriptions: No Action fluoxetine 10 mg capsule 10 mg DAILY ondansetron 4 mg tablet,disintegrating 4 mg Q6-12H L norgest/e.estradiol-e.estrad 0.1 mg-20 mcg (84)/10 mcg (7) tablets,dose pack,3 month 0.1 tablet DAILY hyoscyamine sulfate 0.125 mg tablet, sublingual 0.125 mg TID fluoxetine 20 mg capsule 20 mg HS Follow-up/Referrals: PHYSICIAN,PATROLLER [Primary Care Provider] - Time of Disposition: 08:52
[2024-10-31 08:17] VITALS: BP 119/88; PULSE 82; RESP 18; TEMP 36.3; O2SAT 99
== END 2024-10-31 08:55 | disposition home or self-care (01) ==
PROVIDERS: Emergency Provider Nurse Practitioner Family
DX: S63.501A Unspecified sprain of right wrist, initial encounter (principal); W18.09XA Striking against other object with subsequent fall, initial encounter; G25.81 Restless legs syndrome; F79 Unspecified intellectual disabilities; F40.10 Social phobia, unspecified
CPT/HCPCS: 73110; 99213; G0463

== ENCOUNTER 2024-12-24 09:40 | Emergency (ER) | payer OTHER, SELFPAY ==
--- NOTE | 2024-12-24 09:47 | ED.FEMALEGU ---
HPI - Female Genitourinary General Chief complaint: Urogenital-Female Stated complaint: UTI Time Seen by Provider: 12/24/24 09:49 Source: patient, RN notes reviewed and old records reviewed Mode of arrival: ambulatory Limitations: no limitations History of Present Illness HPI Narrative: 19-year-old female with a history of MR presents to the [facility] with mom with concerns for a UTI. Mom reports burning urgency that started 2 days ago. Took azo yesterday Denies fevers. Mom stated that she did call the urologist Denies abdominal pain. No CVA tenderness. No back pain. Onset (ago): day(s) (2) Related Data Home Medications ?Medication ?Instructions ?Recorded ?Confirmed ?Last Taken ?Type L norgest/E estradiol-E estrad 0.1 0.1 tablet DAILY 09/30/23 04/19/24 Unknown History mg-20 mcg (84)/10 mcg (7) tabs,3mos fluoxetine 10 mg capsule 10 mg DAILY 09/30/23 04/19/24 Unknown History ondansetron 4 mg disintegrating 4 mg Q6-12H 09/30/23 04/19/24 Unknown History tablet fluoxetine 20 mg capsule 20 mg HS 12/23/23 04/19/24 Unknown History hyoscyamine sulfate 0.125 mg 0.125 mg TID 12/23/23 04/19/24 Unknown History sublingual tablet Allergies Allergy/AdvReac Type Severity Reaction Status Date / Time No Known Allergies Allergy Verified 12/24/24 09:58 Review of Systems Review of Systems: All systems reviewed & are unremarkable except as noted in HPI and below Constitutional: Constitutional: Reports no additional constitutional complaints ENT: Reports system reviewed and no additional complaints, except as documented Cardiovascular: Cardiovascular: Reports no additional cardiovascular complaints, Denies chest pain and Denies dyspnea Respiratory: Respiratory: Reports no additional respiratory complaints, Denies chest congestion, Denies cough and Denies dyspnea Gastrointestinal: Gastrointestinal: Reports no additional gastrointestinal complaints and Denies abdominal pain Genitourinary: Genitourinary: Reports as per HPI, Reports dysuria and Reports urinary urgency Musculoskeletal: Musculoskeletal: Reports no additional musculoskeletal complaints Integumentary/Breasts: Skin/Breast: Reports system reviewed and no additional complaints, except as [facility]u [facility] Past Medical History Medical History Cyclical vomiting Restless leg Intellectual disability Headache Anxiety Allergies History of intellectual disability Social anxiety disorder Surgical History Surgical History H/O adenoidectomy History of tonsillectomy Family History Family History Mother No pertinent past medical history Father No pertinent past medical history Sibling Asthma Grandparent Asthma Cancer Diabetes mellitus Hypertension Social History Social History Smoking status: Never smoker Alcohol intake: never Substance use: never Lack of Transportation: No Lack of Food: Never True Current Housing: I Have Housing Concerned About Future Housing: No Difficulty Paying Gas/Electric Bills: No Difficulty Paying for Meds: No Currently Unemployed: No Education: High School Diploma/GED Difficulty w/ Childcare or Family Care: No Living arrangements: with family Occupation/Education: student Gender identity (if verbalized by the patient): Female Comments At the time of my signature, I reviewed and agree with the nursing past medical, surgical, social, and family history. There is no relevant family history pertinent to the patient complaint. Exam Const: General: cooperative, healthy appearing, comfortable, no acute distress, well developed, alert and well nourished Nutritional Appearance: well nourished Orientation/consciousness: patient oriented x3 Limitations: no limitations HENMT: Head: normal to inspection Mouth: Yes Normal oral and palatal mucosa present, Yes lip normal, Yes tongue normal and Yes moist mucous membranes Eyes: General: appearance normal, both eyes and all related structures Alignment and Position: alignment normal Neck: Neck: normal visual inspection, full ROM, no lymphadenopathy and no meningeal signs Chest: Chest palpation & inspection: normal inspection of the chest Resp: Effort & Inspection: normal respiratory effort and able to speak in complete sentences Auscultation: clear to auscultation bilaterally, no crackles, no rales, no rhonchi and no wheezes Cardio: Rate: regular rate GI: GI Palp: No abdominal tenderness : General: Yes no CVA tenderness Skin: General skin exam: normal color and no rashes or lesions noted Neuro: General: patient oriented x3, gait normal, moves all extremities and no meningeal signs Cognition (Neuro): normal cognition Speech: normal speech Gait exam (Neuro): Normal gait present Extrem: General: normal to inspection, full ROM, capillary refill normal and normal gait Psych: Appearance: grossly normal and well kempt Mental Status: mental status grossly normal Speech and movement: Normal speech and movement present and Clear speech present Affect: normal affect Attitude: cooperative Course Course Level of Care: Express Care Visit Vital Signs Vital signs: Vital Signs Temperature 97.2 F L 12/24/24 09:49 Pulse Rate 97 12/24/24 09:49 Respiratory Rate 18 12/24/24 09:49 Blood Pressure 136/78 12/24/24 09:49 Pulse Oximetry 100 12/24/24 09:49 Oxygen Delivery Room Air 12/24/24 09:49 Temperature 97.2 F L 12/24/24 09:49 Pulse Rate 97 12/24/24 09:49 Respiratory Rate 18 12/24/24 09:49 Blood Pressure 136/78 12/24/24 09:49 Pulse Oximetry 100 12/24/24 09:49 Oxygen Delivery Room Air 12/24/24 09:49 Reviewed MDM - Female Genitourinary MDM Narrative Medical decision making narrative: Patient sitting in exam. Patient is nontoxic, vitals stable. Patient presents with concerns for a UTI. Positive blood, positive leukocytes, will send Augmentin send for culture. Mom reports will follow-up with urology. Mom requesting Diflucan for yeast infection Patient appropriate for outpatient treatment with close follow-up Discharge instructions reviewed with patient, as well as provided in writing per nursing staff. The instructions also include specific and strict return/GO TO THE ER as well as f/u information. All questions have been answered, and the patient deny any further questions with discharge and discharge plan. Some parts of this dictation were generated by voice recognition software and may contain typographical and/or grammatical inaccuracies. Differential Diagnosis Differential diagnosis: Likely urinary tract infection and bacterial vaginosis Lab Data Labs: Lab Results 12/24/24 Range/Units 09:58 POC Urine Color Yellow POC Urine Clarity Cloudy POC Urine pH 7.5 POC Ur Specif [place] 1.020 POC Urine Protein 1+ (Negative) POC Ur Glucose (UA) Negative (Negative) POC Urine Ketones Negative (Negative) POC Urine Blood Trace (Negative) POC Urine Nitrite Negative (Negative) POC Urine Bilirubin Negative (Negative) POC Urine Urobilinogen 0.2 POC U Leukocyte Esteras 3+ (Negative) Critical Care Time Critical Care Time Critical Care Time: No Discharge Plan Discharge Clinical Impression: Urinary tract infection Qualifiers: Urinary tract infection type: acute cystitis Hematuria presence: with hematuria Qualified Code(s): N30.01 - Acute cystitis with hematuria Patient Disposition: Home Condition: Stable Instructions: Antibiotic Form, Urinary Tract Infection in Women (ED) Additional Instructions: Increased water intake Take Tylenol as needed for pain Take antibiotic as prescribed Today your urine dip showed a probability of a UTI. You have been prescribed an antibiotic. Your urine will be sent to our lab for a culture. If at that time a bacteria grows that is not covered by the antibiotic prescribed you will be notified. Follow-up with primary care For new or worsening symptoms go directly to the emergency room Patient Language: Citizen Of [place] Prescriptions: New amoxicillin-pot clavulanate 875-125 mg tablet 1 tablet PO Q12H Qty: 10 0RF fluconazole 150 mg tablet 150 mg PO ONCE Qty: 1 0RF Rx Instructions: as a single dose No Action fluoxetine 10 mg capsule 10 mg DAILY ondansetron 4 mg tablet,disintegrating 4 mg Q6-12H L norgest/e.estradiol-e.estrad 0.1 mg-20 mcg (84)/10 mcg (7) tablets,dose pack,3 month 0.1 tablet DAILY hyoscyamine sulfate 0.125 mg tablet, sublingual 0.125 mg TID fluoxetine 20 mg capsule 20 mg HS Follow-up/Referrals: PHYSICIAN,VP DIRECTOR OF CREATIVE STRATEGY [Primary Care Provider] - Time of Disposition: 10:08
[2024-12-24 09:49] VITALS: BP 136/78; PULSE 97; RESP 18; TEMP 36.2; O2SAT 100
--- OUTSIDE RECORDS SUMMARY | 2024-12-24 09:51 | XMS_ITS | Clinical Summary ---
Author Organization [facility] Address [address] [place] [address] Care Team Providers Care Mail Delivery Supervisor Name Role Phone Nkechi Calhoun MD Primary Care Provider Source Comments [facility],non-owned Affiliates and Associated Physician Practices is amultiple site organization consisting of ambulatory clinics and hospital sitesin [place], [place], [place] and [place]. This disclosure is being madepursuant to the Care Everywhere program and may not contain all information available regarding this patient. Last updated 18.[facility] Allergies No known active allergies Medications * [...] by mouth once daily 3 Active ondansetron, disintegrating, (Zofran ODT) 4 MG tabletIndicatio ns:Nausea and Vomiting Take 1 (one) tablet by [...] Additional Information Patient not taking.Reported on 10/20/2024 Levonorgest-Eth inyl Estradiol (LoSeasonique) 0.1-0.02 & 0.01 MG TABS tablet Take 1 tablet by mouth once daily Patient to skip placebo pills and take active pills continuously to suppress menstruation 91 tablet 7 5 Active Active Problems Patient Care Coordination No te [...] 06/17/2022 Assessment & Plan (06/19/2022 5:00 PM ABRASIVE WORKER): Assessment: Kaelyn Shepherd is an 17 year [...] today. Assessment & Plan (06/17/2022 8:01 PM ABRASIVE WORKER): Assessment: Kaelyn Shepherd is an 17 year [...] 07/19/2020 Assessment & Plan (06/19/2022 4:57 PM ABRASIVE WORKER): Assessment: Kaelyn Shepherd is an 17 year old F with PMH of developmental delay and cyclic vomiting syndrome here with abd pain and uncontrolled emesis. UA w/ 3+ blood and oxalate crystals (currently spotting). CT w/o contrast was not concerning for stones. Generalized abd tenderness no rebound tenderness though very nauseous. Admitted for IVF and pain management. Assessment & Plan (06/17/2022 8:01 PM ABRASIVE WORKER): Assessment: Kaelyn Shepherd is an 17 year [...] Department Care Team Description 10/21/2024 Results Follow-Up [facility] - [facility] [address] [facility] [address] [place] [id number] Shweta Mcgee MD 10/20/2024 1:00 PM CDT Office Visit [facility] - [facility] [address] [place] [address] Shweta Mcgee MD Surveillance of contraceptive pill [...] Recorded Patient Health Questionnaire-2 Score 0 10/20/2024 [facility] - Occupational Stress [...] place to sleep or slept in a fdc (including now)? No 08/17/2022 Comments No Sex and Gender Information Value Date Recorded Sex Assigned at Female 06/01/2024 11:53 PM ABRASIVE WORKER Legal Sex Female 8:37 AM ABRASIVE WORKER Gender Identity Female 06/01/2024 11:53 PM ABRASIVE WORKER Sexual Orientation Not on file Last Filed Vital Signs Vital Sign Reading Time Taken Comments Blood Pressure 120/88 10/20/2024 1:04 PM CDT Pulse 97 06/29/2024 2:11 PM ABRASIVE WORKER Temperature 37.1 C (98.7 F) 06/29/2024 2:11 PM ABRASIVE WORKER Respiratory Rate 17 06/29/2024 2:11 PM ABRASIVE WORKER Oxygen Saturation 94% 06/29/2024 2:11 PM ABRASIVE WORKER Inhaled Oxygen Concentration - - Weight 84.7 kg (186 lb 12.8 oz) 10/20/2024 1:04 PM CDT Height 157.5 cm (5' 2) 10/20/2024 1:04 PM CDT Body Mass Index 34.17 10/20/2024 1:04 PM CDT Plan of Treatment Health Maintenance Due Date Last Done Comments HIV SCREENING 2019 CHLAMYDIA/GONORRHEA SCREENING 2020 HEPATITIS C SCREENING 05/06/2022 COVID-19 VACCINE (1 - 2023-2 5 season) 2024 INFLUENZA VACCINE (#1) 2025 04/26/2023, 2019 DTAP/TDAP/TD VACCINES (7 - T d or [...] CDT) TSH with Reflex FT4 1.54 mIU/L Secret Comment: Reference Range > or = 20 Years 0.40-4.50 Ranges First trimester 0.26-2.66 Second trimester 0.55-2.73 Third trimester 0.43-2.91 Test Performed at: [facility] [address] [place] [address] KARIN HEREDIA MD Blood BLOOD SPECIMEN / Unknown 10/20/2024 1:28 PM CDT 10/20/2024 1:29 PM CDT Shweta Mcgee MD LAB - CHEMISTRY ORDERABLES Ghada l Result Performing Organization Address [facility] Co de Phone Number [facility] [address] [place] [address] * VITAMIN D 25-HYDROXY (10/20/2024 1:28 PM [...] D, (D2,D3), LC/MS/MS is recommended: order code [id number] (patients >2yrs). See Note 1 Note 1 For additional information, please refer to http://education.JobApp.Kanbanize/faq/QJR116 (This link is being provided for informational/ educational purposes only.) Test Performed at: [facility] [address] [place] [phone] KARIN HEREDIA MD Blood BLOOD SPECIMEN / Unknown 10/20/2024 1:28 PM CDT 10/20/2024 1:29 PM CDT Shweta Mcgee MD LAB - CHEMISTRY ORDERABLES Ghada l Result Performing Organization Address City/[facility]/ZIP Co de Phone Number [facility] [address] [place] [address] from Last 3 Months Insurance [facility] Advance Directives * Full Code (Latest Code Status on File) Date Activated Date Inactivated Comments 08/17/2022 3:09 AM 08/17/2022 7:12 PM * Full Code Date Activated Date Inactivated Comments 02/04/2020 5:05 PM 02/05/2020 9:12 PM Care Teams Mail Delivery Supervisor Relationship Specialty Start Date End Date Nkechi Calhoun MD [address] [facility] [place] [address] PCP - General Internal Medicine 09/25/23
[2024-12-24 10:00] LABS: EDUAAPPEAR Cloudy; EDUABILI Negative (Negative); EDUABLOOD Trace (Negative); EDUACOLOR1 Yellow; EDUAGLUCOSE Negative (Negative); EDUAKETONE Negative (Negative); EDUALEUKO 3+ (Negative); EDUANITRATE Negative (Negative); EDUAPH 7.5; EDUAPROTEIN 1+ (Negative); EDUASPGRAVITY 1.020; EDUAUROBILI 0.2
== END 2024-12-24 10:14 | disposition home or self-care (01) ==
PROVIDERS: Emergency Provider Nurse Practitioner
DX: N30.01 Acute cystitis with hematuria (principal)
CPT/HCPCS: 81003; 87086; 99213; G0463

== ENCOUNTER 2025-02-09 12:43 | Emergency (ER) | payer OTHER, SELFPAY ==
[2025-02-09 12:52] VITALS: BP 130/81; PULSE 103; RESP 18; TEMP 36.3; O2SAT 99
--- NOTE | 2025-02-09 12:53 | ED.FEMALEGU ---
HPI - Female Genitourinary General Chief complaint: Urogenital-Female Stated complaint: urinary irritation Time Seen by Provider: 02/09/25 12:55 Source: patient, RN notes reviewed and old records reviewed Mode of arrival: ambulatory Limitations: no limitations History of Present Illness HPI Narrative: 19-year-old female presents to the [facility] with family member. Reports 3 day history of constant irritation in the vaginal area. Denies changing with urination. Was recently treated on January 28 with Macrobid. Reviewed previous microbiology is from when she has been seen before with the same symptoms. Bacteria did not grow out. Onset (ago): day(s) (2-3) Related Data Home Medications ?Medication ?Instructions ?Recorded ?Confirmed ?Last Taken ?Type L norgest/E estradiol-E estrad 0.1 0.1 tablet DAILY 09/30/23 04/19/24 Unknown History mg-20 mcg (84)/10 mcg (7) tabs,3mos fluoxetine 10 mg capsule 10 mg DAILY 09/30/23 04/19/24 Unknown History oxybutynin chloride 5 mg mg PO 02/09/25 Unknown History tablet,extended release 24 hr Allergies Allergy/AdvReac Type Severity Reaction Status Date / Time No Known Allergies Allergy Verified 02/09/25 12:44 Review of Systems Review of Systems: All systems reviewed & are unremarkable except as noted in HPI and below Constitutional: Constitutional: Reports no additional constitutional complaints Genitourinary: Genitourinary: Reports as per HPI Musculoskeletal: Musculoskeletal: Reports no additional musculoskeletal complaints Integumentary/Breasts: Skin/Breast: Reports system reviewed and no additional complaints, except as docu PMFSH Past Medical History Medical History Cyclical vomiting Restless leg Intellectual disability Headache Anxiety Allergies History of intellectual disability Social anxiety disorder Surgical History Surgical History H/O adenoidectomy History of tonsillectomy Family History Family History Mother No pertinent past medical history Father No pertinent past medical history Sibling Asthma Grandparent Asthma Cancer Diabetes mellitus Hypertension Social History Social History Smoking status: Never smoker Alcohol intake: never Substance use: never Lack of Transportation: No Lack of Food: Never True Current Housing: I Have Housing Concerned About Future Housing: No Difficulty Paying Gas/Electric Bills: No Difficulty Paying for Meds: No Currently Unemployed: No Education: High School Diploma/GED Difficulty w/ Childcare or Family Care: No Living arrangements: with family Occupation/Education: student Gender identity (if verbalized by the patient): Female Comments At the time of my signature, I reviewed and agree with the nursing past medical, surgical, social, and family history. There is no relevant family history pertinent to the patient complaint. Exam Const: General: cooperative, healthy appearing, comfortable, no acute distress, well developed, alert and well nourished Nutritional Appearance: well nourished Orientation/consciousness: patient oriented x3 Limitations: no limitations HENMT: Head: normal to inspection Mouth: Yes Normal oral and palatal mucosa present, Yes lip normal, Yes tongue normal and Yes moist mucous membranes Eyes: General: appearance normal, both eyes and all related structures Alignment and Position: alignment normal Neck: Neck: normal visual inspection, full ROM, no lymphadenopathy and no meningeal signs Chest: Chest palpation & inspection: normal inspection of the chest Resp: Effort & Inspection: normal respiratory effort and able to speak in complete sentences Auscultation: clear to auscultation bilaterally, no crackles, no rales, no rhonchi and no wheezes Cardio: Rate: regular rate GI: GI Palp: No abdominal tenderness : General: Yes no CVA tenderness Skin: General skin exam: normal color and no rashes or lesions noted Neuro: General: patient oriented x3, gait normal, moves all extremities and no meningeal signs Cognition (Neuro): normal cognition Speech: normal speech Gait exam (Neuro): Normal gait present Extrem: General: normal to inspection, full ROM, capillary refill normal and normal gait Psych: Appearance: grossly normal and well kempt Mental Status: mental status grossly normal Speech and movement: Normal speech and movement present and Clear speech present Affect: normal affect Attitude: cooperative Course Course Level of Care: Express Care Visit Vital Signs Vital signs: Vital Signs Temperature 97.4 F L 02/09/25 12:52 Pulse Rate 103 H 02/09/25 12:52 Respiratory Rate 18 02/09/25 12:52 Blood Pressure 130/81 02/09/25 12:52 Pulse Oximetry 99 02/09/25 12:52 Oxygen Delivery Room Air 02/09/25 12:52 Temperature 97.4 F L 02/09/25 12:52 Pulse Rate 103 H 02/09/25 12:52 Respiratory Rate 18 02/09/25 12:52 Blood Pressure 130/81 02/09/25 12:52 Pulse Oximetry 99 02/09/25 12:52 Oxygen Delivery Room Air 02/09/25 12:52 Reviewed MDM - Female Genitourinary MDM Narrative Medical decision making narrative: Patient sitting in exam room. Patient reports constant irritation to the vaginal area. No changing with urination. Her recently took Macrobid without any testing. States that her doctor just called in. Was seen in November, no growth during the culture same with similar symptoms that occurred in April and March. Last menstrual period 2 weeks ago. Will send culture. Patient without abdominal pain, fevers, CVA tenderness Discussed possibility of yeast infections due to recent antibiotics. Family member verbalized understanding Discharge instructions reviewed with patient, as well as provided in writing per nursing staff. The instructions also include specific and strict return/GO TO THE ER as well as f/u information. All questions have been answered, and the patient deny any further questions with discharge and discharge plan. Some parts of this dictation were generated by voice recognition software and may contain typographical and/or grammatical inaccuracies. Differential Diagnosis Differential diagnosis: Likely urinary tract infection, bacterial vaginosis, cystitis and other Lab Data Labs: Lab Results 02/09/25 Range/Units 13:02 POC Urine Color Dark POC Urine Clarity Cloudy POC Urine pH 7.0 POC Ur Specif [place] 1.015 POC Urine Protein Negative (Negative) POC Ur Glucose (UA) Negative (Negative) POC Urine Ketones Negative (Negative) POC Urine Blood Negative (Negative) POC Urine Nitrite Negative (Negative) POC Urine Bilirubin Negative (Negative) POC Urine Urobilinogen 0.2 POC U Leukocyte Esteras 2+ (Negative) Critical Care Time Critical Care Time Critical Care Time: No Discharge Plan Discharge Clinical Impression: Vaginal irritation Patient Disposition: Home Condition: Stable Instructions: Dysuria (ED) Additional Instructions: Which we have sent your urine for culture. If it does come back positive for UTI we will then call you in an antibiotic. Please follow-up with teacher of the sight impaired provider or primary care provider for further evaluation For new or worsening symptoms go directly to the emergency room Patient Language: Paraguayan Prescriptions: New fluconazole 150 mg tablet 150 mg PO ONCE Qty: 1 0RF Rx Instructions: as a single dose No Action fluoxetine 10 mg capsule 10 mg DAILY L norgest/e.estradiol-e.estrad 0.1 mg-20 mcg (84)/10 mcg (7) tablets,dose pack,3 month 0.1 tablet DAILY oxybutynin chloride 5 mg tablet extended release 24hr PO Follow-up/Referrals: ROBERTO CASTILLO,ROBERTA Bejarano M.D. [Primary Care Provider] - 1 Week Stand Alone Forms: Work/School Release IP Time of Disposition: 13:11
[2025-02-09 13:05] LABS: EDUAAPPEAR Cloudy; EDUABILI Negative (Negative); EDUABLOOD Negative (Negative); EDUACOLOR1 Dark; EDUAGLUCOSE Negative (Negative); EDUAKETONE Negative (Negative); EDUALEUKO 2+ (Negative); EDUANITRATE Negative (Negative); EDUAPH 7.0; EDUAPROTEIN Negative (Negative); EDUASPGRAVITY 1.015; EDUAUROBILI 0.2
== END 2025-02-09 13:20 | disposition home or self-care (01) ==
PROVIDERS: Emergency Provider Nurse Practitioner; PCP Internal Medicine
DX: R10.2 Pelvic and perineal pain (principal); G25.81 Restless legs syndrome; F41.9 Anxiety disorder, unspecified; F79 Unspecified intellectual disabilities
CPT/HCPCS: 81003; 87086; 99213; G0463

== ENCOUNTER 2025-04-12 11:18 | Emergency (ER) | payer OTHER, SELFPAY ==
--- NOTE | ~2025-04-12 | XR_ITS ---
EXAMINATION: XR wrist RT min 3V, 04/12/2025 11:41 [facility] HISTORY: right wrist pain COMPARISON: No comparisons available. Findings: No acute fracture or malalignment. No significant degenerative changes. Soft tissues unremarkable. Impression: No acute fracture or malalignment. Reviewed, dictated and finalized at location [facility] Impression: No acute fracture or malalignment.
--- NOTE | 2025-04-12 11:20 | ED.FEMALEGU ---
HPI - Female Genitourinary General Chief complaint: Extremity Injury, Upper Stated complaint: UTI Source: patient and RN notes reviewed Mode of arrival: ambulatory Limitations: no limitations History of Present Illness HPI Narrative: Patient is a 19-year-old female who presents to the [facility] with multiple complaints. Patient complaints of dysuria and urinary frequency that has been ongoing for the past week. She denies known hematuria, pelvic pain, flank pain. Denies recent fevers. States that she took at UTI test that was positive. Patient also has complaints right wrist pain. She states that she injured the wrist yesterday while tumbling. She states that she was attempting a car wheel when she had sudden onset pain to the right wrist. Pain worsens with movement but patient has full range of motion of her wrist. She is neurovascularly intact. Sensation intact. No obvious swelling or deformity. Related Data Home Medications ?Medication ?Instructions ?Recorded ?Confirmed ?Last Taken ?Type L norgest/E estradiol-E estrad 0.1 0.1 tablet DAILY 09/30/23 04/19/24 Unknown History mg-20 mcg (84)/10 mcg (7) tabs,3mos fluoxetine 10 mg capsule 10 mg DAILY 09/30/23 04/19/24 Unknown History oxybutynin chloride 5 mg mg PO 02/09/25 Unknown History tablet,extended release 24 hr Allergies Allergy/AdvReac Type Severity Reaction Status Date / Time No Known Allergies Allergy Verified 04/12/25 11:36 Review of Systems Review of Systems: CONSTITUTIONAL: Denies fever, chills, or sweats. EYES: Denies visual changes, redness, or discharge. ENT: Denies otalgia and sore throat CARDIOVASCULAR: Denies chest pain, palpitations, or edema. RESPIRATORY: Denies cough or dyspnea. GASTROINTESTINAL: Denies abdominal pain, nausea, vomiting, or diarrhea. GENITOURINARY: Reports dysuria and urinary frequency but denies hematuria. SKIN: Denies rash or itching. MUSCULOSKELETAL: Reports right wrist pain. NEUROLOGIC: Denies headache, numbness, or weakness. Pertinent positives per HPI. [facility] Past Medical History Medical History Cyclical vomiting Restless leg Intellectual disability Headache Anxiety Allergies History of intellectual disability Social anxiety disorder Surgical History Surgical History H/O adenoidectomy History of tonsillectomy Family History Family History Mother No pertinent past medical history Father No pertinent past medical history Sibling Asthma Grandparent Asthma Cancer Diabetes mellitus Hypertension Social History Social History Smoking status: Never smoker Alcohol intake: never Substance use: never Lack of Transportation: No Lack of Food: Never True Current Housing: I Have Housing Concerned About Future Housing: No Difficulty Paying Gas/Electric Bills: No Difficulty Paying for Meds: No Currently Unemployed: No Education: High School Diploma/GED Difficulty w/ Childcare or Family Care: No Living arrangements: with family Occupation/Education: student Gender identity (if verbalized by the patient): Female Comments At the time of my signature, I reviewed and agree with the nursing past medical, surgical, social, and family history. There is no relevant family history pertinent to the patient complaint. Exam Narrative: GENERAL: This is a well-nourished, well-developed patient, in no apparent distress. HEAD: normocephalic, atraumatic. EYES: Sclera clear/white. Vision is grossly intact. EARS: External ears normal. Hearing grossly intact. NOSE: External nose normal with no obvious nasal discharge, nares without redness, no rhinorrhea. THROAT: Mucous membranes moist, posterior pharynx clear. NECK: Neck supple, non-tender without lymphadenopathy, masses or thyromegaly. CARDIOVASCULAR: Regular rate and rhythm without murmurs, gallops, or rubs. RESPIRATORY: Clear to auscultation. Breath sounds equal bilaterally. No wheezes, rales, or rhonchi. GASTROINTESTINAL: Abdomen soft, non-tender, nondistended. Bowel sounds are active. No hepato-splenomegaly, or palpable masses. No guarding. SKIN: warm, intact with no suspicious lesions or rash, good texture and turgor. NEURO: awake, alert, and oriented to person, place and time. There were no obvious focal neurologic abnormalities. EXTREMITIES: Right wrist tenderness. No swelling or deformity. Full range of motion. Distal neurovascular and motor status intact. BACK: Nontender without deformity or crepitance. No flank tenderness. Course Course Level of Care: Express Care Visit Vital Signs Vital signs: Vital Signs Temperature 97.7 F 04/12/25 11:32 Pulse Rate 97 04/12/25 11:32 Respiratory Rate 18 04/12/25 11:32 Blood Pressure 127/82 04/12/25 11:32 Pulse Oximetry 99 04/12/25 11:32 Oxygen Delivery Room Air 04/12/25 11:32 Temperature 97.7 F 04/12/25 11:32 Pulse Rate 97 04/12/25 11:32 Respiratory Rate 18 04/12/25 11:32 Blood Pressure 127/82 04/12/25 11:32 Pulse Oximetry 99 04/12/25 11:32 Oxygen Delivery Room Air 04/12/25 11:32 Reviewed Procedures Orthopedic Splinting/Casting Injury #1: Splinting/Casting Date: 04/12/25 Splinting/Casting Time: 12:00 Side: right Upper Extremity Injury Location: wrist Upper Extremity Immobilizer: Ray wrap Pre-Procedure Neuro Vascular Exam: normal Post-Procedure Neuro Vascular Exam: normal MDM - Female Genitourinary MDM Narrative Medical decision making narrative: We will send a urine culture off to the lab; if the culture identifies an organism that the prescribed antibiotic will not treat, you will receive a phone call from an urgent care staff member and an appropriate antibiotic will be prescribed. -Your symptoms should begin to improve within a day of starting antibiotics. But you should finish all the antibiotic pills you get. Otherwise your infection might come back. -Also recommend: drink more fluid. It might help flush out germs, and it does no harm -Tylenol/ibuprofen as needed for pain -Follow-up with your primary care provider for urine recheck OR if your symptoms persist, change or worsen significantly before you can contact your personal physician then please, without delay, go to the emergency department for further evaluation. Use the RICE method at home. May take ibuprofen and/or Tylenol if needed. If symptoms persist in 1 week after conservative treatment, follow-up with specialist. Differential Diagnosis Differential diagnosis: Likely urinary tract infection, vaginitis, cystitis and other (wrist sprain, wrist fracture, hand fracture) Lab Data Attestation: I reviewed the patient's lab results. Labs: Lab Results 04/12/25 Range/Units 11:38 POC Urine Color Yellow POC Urine Clarity Clear POC Urine pH 7.0 POC Ur Specif [place] 1.020 POC Urine Protein Negative (Negative) POC Ur Glucose (UA) Negative (Negative) POC Urine Ketones Negative (Negative) POC Urine Blood Trace (Negative) POC Urine Nitrite Negative (Negative) POC Urine Bilirubin Negative (Negative) POC Urine Urobilinogen 0.2 POC U Leukocyte Esteras 1+ (Negative) Imaging Data Attestation: I personally reviewed and interpreted this imaging study as follows: Radiologist's impression: [address] [address] XRay Report Signed Patient: Kaelyn Shepherd : 2005 MR#: [id number] Age: 19 Acct:[id number] Loc: [facility] ADM Date: 04/12/[address]: Ordering Physician: Lilibeth Trinidad APRN Date of Service: 04/12/25 Procedure(s): XR wrist RT min 3V Accession Number(s): [id number] cc: Lilibeth Trinidad APRN; ROBERTO CASTILLO,ROBERTA Lisa EXAMINATION: XR wrist RT min 3V, 04/12/2025 11:41 WIRELESS FIELD TECHNICIAN HISTORY: right wrist pain COMPARISON: No comparisons available. Findings: No acute fracture or malalignment. No significant degenerative changes. Soft tissues unremarkable. Impression: No acute fracture or malalignment. Reviewed, dictated and finalized at location P. LESS FIELD TECHNICIAN Please be advised this is a medical document. It is intended for [id number] communication. It is written in medical language and may contain unfamiliar abbreviations or verbiage. Medical documents are intended to carry relevant information, facts as evident, and the clinical opinion of the practitioner at the time of the encounter. This report may have been done utilizing a voice recognition system. Attempts have been made to correct errors. However, there may be uncorrected grammatical, spelling, and recognition errors present. The file time of this note does not necessarily represent the time of service. Dictated By: Abdiel Dumont MD 04/12/25 1155 Signed By: <Electronically signed by Abdiel Dumont MD in OV> 04/12/25 1156 Critical Care Time Critical Care Time Critical Care Time: No Discharge Plan Discharge Clinical Impression: Acute cystitis with hematuria, Right wrist sprain Patient Disposition: Home Condition: Stable Instructions: Antibiotic Form, Urinary Tract Infection in Women (ED), P.R.I.C.E. Treatment (ED), Wrist Sprain (ED) Additional Instructions: We will send a urine culture off to the lab; if the culture identifies an organism that the prescribed antibiotic will not treat, you will receive a phone call from an urgent care staff member and an appropriate antibiotic will be prescribed. -Your symptoms should begin to improve within a day of starting antibiotics. But you should finish all the antibiotic pills you get. Otherwise your infection might come back. -Also recommend: drink more fluid. It might help flush out germs, and it does no harm -Tylenol/ibuprofen as needed for pain -Follow-up with your primary care provider for urine recheck OR if your symptoms persist, change or worsen significantly before you can contact your personal physician then please, without delay, go to the emergency department for further evaluation. Use the RICE method at home. May take ibuprofen and/or Tylenol if needed. If symptoms persist in 1 week after conservative treatment, follow-up with specialist. Patient Language: Spanish Prescriptions: New cephalexin 500 mg capsule 500 mg PO Q8H 7 Days Qty: 21 0RF fluconazole 150 mg tablet 150 mg PO ONCE Qty: 1 0RF Rx Instructions: as a single dose No Action fluoxetine 10 mg capsule 10 mg DAILY L norgest/e.estradiol-e.estrad 0.1 mg-20 mcg (84)/10 mcg (7) tablets,dose pack,3 month 0.1 tablet DAILY oxybutynin chloride 5 mg tablet extended release 24hr PO Follow-up/Referrals: ROBERTO CASTILLO,ROBERTA Bejarano M.D. [Primary Care Provider] Stand Alone Forms: Work/School Release IP Time of Disposition: 12:02
[2025-04-12 11:32] VITALS: BP 127/82; PULSE 97; RESP 18; TEMP 36.5; O2SAT 99
[2025-04-12 11:45] LABS: EDUAAPPEAR Clear; EDUABILI Negative (Negative); EDUABLOOD Trace (Negative); EDUACOLOR1 Yellow; EDUAGLUCOSE Negative (Negative); EDUAKETONE Negative (Negative); EDUALEUKO 1+ (Negative); EDUANITRATE Negative (Negative); EDUAPH 7.0; EDUAPROTEIN Negative (Negative); EDUASPGRAVITY 1.020; EDUAUROBILI 0.2
--- OUTSIDE RECORDS SUMMARY | 2025-04-12 20:49 | XMS_ITS | Clinical Summary ---
Author Organization [facility] Address [address] [place] [address] Care Team Providers Care Api Product Manager Name Role Phone Nkechi Calhoun MD Primary Care Provide r Nkechi Calhoun MD Unavailable [phone] Allergies No known active allergies Medications hyoscyamine (LEVSIN/SL) 0.[address] 1 tablet (0.125 mg total) under the tongue 3 (three) times daily as needed. 4 Active Levonorgest-Eth Estrad -Day 0.1-0.02 & 0.01 MG Tab Take 1 tablet by mouth nightly. 4 Active FLUoxetine (PROZAC) 20 MG capsule Take 1 capsule (20 mg total) by mouth daily. 4 Active FLUoxetine (PROZAC) 10 MG capsule Take 1 capsule (10 mg total) by mouth daily. 4 Active ondansetron (ZOFRAN-ODT) 4 MG disintegrating tablet DISSOLVE 1 TABLET ON THE TONGUE EVERY 6 HOURS NEEDED FOR NAUSEA AND VOMITING 4 Active oxybutynin XL (DITROPAN-XL) 5 MG 24 hr tablet Take 1 tablet (5 mg total) by mouth daily. 5 Active Multiple Vitamin (MULTIVITAMIN ADULT OR) Take 1 tablet by mouth daily. 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 Family History Medical History Relation Comments Diabetes Paternal Grandfather Diabetic Cancer Paternal Grandmother Pancreatic Cancer Relation Status Comments Paternal Grandfather Paternal Grandmother Social History Tobacco Use Types Packs/Day Years Used Date Smoking Tobacco: Never Passive Smoke Exposure: Never Smokeless Tobacco: Never Tobacco Cessation:Counseling Given: No Alcohol Use Standard Drinks/Week Comments Never 0 (1 standard drink = 0.6 oz pur e alcohol) PHQ-2 Answer Date Recorded Patient Health Questionnaire-2 Score 0 08/19/2024 Comments No Sex and Gender Information Value Date Recorded Sex Assigned at Female 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 Sex Female 1:31 PM CDT Gender Identity Not on file Sexual Orientation Not on file Last Filed Vital Signs Vital Sign Reading Time Taken Comments Blood Pressure 120/84 11/11/2024 1:49 PM CDT Pulse 81 11/11/2024 1:49 PM CDT Temperature 36.7 C (98.1 F) 11/11/2024 1:49 PM CDT Respiratory Rate 18 08/06/2024 12:20 PM CDT Oxygen Saturation 98% 09/30/2024 2:53 PM CDT Inhaled Oxygen Concentration - - Weight 84.5 kg (186 lb 3.2 oz) 11/11/2024 1:49 P M CDT Height 157.5 cm (5' 2) 11/11/2024 1:49 PM CDT Body Mass Index 34.06 11/11/2024 1:49 PM CDT Plan of Treatment Health Maintenance Due Date Last Done Comments Annual Physical 2007 Hepatitis C 2022 COVID-19 Vaccine ( season) 2025 Influenza Adult (#1) 2025 04/26/2023, 03/15/2023, 02/05/2020 DTaP, Tdap and Td Vaccines (7 - Td or Tdap) 2026 2016, 01/05/2010, 11/26/2005, Additional history exists Hepatitis B Vaccines Completed 2004, 2004, 2004, Additional history exists Pneumococcal Vaccine: Pediatrics (0 to 5 Years) and At-Risk Patients (6 to 49 Years) Aged Out 08/22/2005, 2004, 2004, Additional history exists No longer eligible based on patient's age to complete this topic Hepatitis A Vaccines Completed 05/21/2007, 05/13/20 06 HPV Vaccines Completed 07/14/2018, 2016 Meningococcal Vaccine Completed 09/06/2020, 016 Meningococcal B Vaccine Completed 10/26/2020, 09/06 PHQ-2 (Physician [place]) Completed 08/19/2024 RSV Immunizations Under 20 Months Aged Out No longer eligible based on patient's age to complete this topic Medical Devices Implanted Type Area Film Sound Engineer Device Identifier Shelf Expiration Date Model / Serial / Lot [employer] Fibertak Dx Suture Kensal Implanted:Qty: 2 on 08/06/2024 by Gregory Mares MD at [facility] Kensal Right: Ankle [employer] [id number] 02/23/2029 [id number] / / [id number] Ar[employer] Internal Brace Ligament Repair Implanted:Qty: 1 on 08/06/2024 by Gregory Mares MD at [facility] Right: Ankle [employer] [id number] 01/24/2026 [id number] / / [id number] Insurance [employer] Care Teams Api Product Manager Relationship Specialty Start Date End Date Nkechi Calhoun MD [address] [facility] [address] [place] [address] PCP - General INTERNAL MEDICINE 02/05/24 Nkechi Calhoun MD [address] [facility] [address] [place] [address] INTERNAL MEDICINE 02/05/24
== END 2025-04-12 12:06 | disposition home or self-care (01) ==
PROVIDERS: Emergency Provider Nurse Practitioner; PCP Internal Medicine
DX: N30.01 Acute cystitis with hematuria (principal); S63.501A Unspecified sprain of right wrist, initial encounter; X58.XXXA Exposure to other specified factors, initial encounter; Y93.43 Activity, gymnastics; F79 Unspecified intellectual disabilities; F41.9 Anxiety disorder, unspecified
CPT/HCPCS: 73110; 81003; 87086; 99213; G0463